=== PATIENT | female | born 1990 | race Caucasian/White ===

== ENCOUNTER 2016-08-01 13:05 | Emergency (ER) | payer BC, OTHER ==
[2016-08-01 13:25] VITALS: RESP 18
--- NOTE | 2016-08-01 14:25 | ED ---
General Adult HPI - General Chief complaint: Vaginal Bleeding Stated complaint: 8 weeks /Bleeding Time Seen by Provider: 08/01/16 13:33 Source: patient, RN notes reviewed, old records reviewed Mode of arrival: ambulatory Limitations: no limitations - History of Present Illness Initial comments: This is a 25-year-old female the ER for evaluation of positive with vaginal bleeding. Patient states she is unsure of her blood type but she thinks she is positive. And this is the same person as her prior as far as the father. Patient is a with no complications. She recently had some cramping and bleeding yesterday and today. Still some cramping, no significant bleeding no lightheadedness dizziness or weakness - Related Data Home Medications Medication Instructions Recorded Confirmed Pik-Xcac-Jkbho Acid 1 cap PO QAM 08/01/16 08/01/16 [-U Capsule (formulary)] Allergies Allergy/AdvReac Type Severity Reaction Status Date / Time No Known Allergies Allergy Verified 08/01/16 15:10 Review of Systems ROS Statement: Those systems with pertinent positive or pertinent negative responses have been documented in the HPI. ROS Other: All systems not noted in ROS Statement are negative. Past Medical History Past Medical History: No Reported History History of Any Multi-Drug Resistant Organisms: None Reported Past Surgical History: Ear Surgery Past Psychological History: No Psychological Hx Reported Smoking Status: Current every day smoker Past Alcohol Use History: Occasional Past Drug Use History: None Reported General Exam Limitations: no limitations General appearance: alert, in no apparent distress Head exam: Present: atraumatic, normocephalic, normal inspection Eye exam: Present: normal appearance, PERRL, EOMI. Absent: scleral icterus, conjunctival injection, periorbital swelling ENT exam: Present: normal exam, mucous membranes moist Neck exam: Present: normal inspection. Absent: tenderness, meningismus, lymphadenopathy Respiratory exam: Present: normal lung sounds bilaterally. Absent: respiratory distress, wheezes, rales, rhonchi, stridor Cardiovascular Exam: Present: regular rate, normal rhythm, normal heart sounds. Absent: systolic murmur, diastolic murmur, rubs, gallop, clicks GI/Abdominal exam: Present: soft, normal bowel sounds. Absent: distended, tenderness, guarding, rebound, rigid Extremities exam: Present: normal inspection, full ROM, normal capillary refill. Absent: tenderness, pedal edema, joint swelling, calf tenderness Back exam: Present: normal inspection Neurological exam: Present: alert, oriented X3, CN II-XII intact Psychiatric exam: Present: normal affect, normal mood Skin exam: Present: warm, dry, intact, normal color. Absent: rash Course Vital Signs 08/01/16 13:22 Temperature 99.5 F Pulse Rate 108 H Respiratory 18 Rate Blood Pressure 135/77 O2 Sat by Pulse 99 Oximetry - Reevaluation(s) Reevaluation #1: 08/01/16 15:35 Spoke with patient greater than 15 minutes regarding threatened , ectopic versus miscarriage. Patient aware of signs and symptoms, questions answered, patient will follow-up with OB or return to emergency room if symptoms worsen again in 2 days for reevaluation Medical Decision Making - Lab Data Result diagrams: 08/01/16 14:04 Lab Results 08/01/16 08/01/16 08/01/16 Range/Units 14:04 14:04 14:04 WBC 10.4 (3.8-10.6) k/uL RBC 4.96 (3.80-5.40) m/uL Hgb 13.9 (11.4-16.0) gm/dL Hct 41.5 (34.0-46.0) % MCV 83.7 (80.0-100.0) fL MCH 28.1 (25.0-35.0) pg MCHC 33.6 (31.0-37.0) g/dL RDW 13.5 (11.5-15.5) % Plt Count 233 (150-450) k/uL Neutrophils % 82 % Lymphocytes % 12 % Monocytes % 4 % Eosinophils % 1 % Basophils % 0 % Neutrophils # 8.5 H (1.3-7.7) k/uL Lymphocytes # 1.2 (1.0-4.8) k/uL Monocytes # 0.4 (0-1.0) k/uL Eosinophils # 0.1 (0-0.7) k/uL Basophils # 0.0 (0-0.2) k/uL HCG, Quant mIU/mL Urine Color Urine Appearance (Clear) Urine pH (5.0-8.0) Ur Specific [place] (1.001-1.035) Urine Protein (Negative) Urine Glucose (UA) (Negative) Urine Blood (Negative) Urine Nitrite (Negative) Urine Bilirubin (Negative) Urine Urobilinogen (<2.0) mg/dL Ur Leukocyte Esterase (Negative) Urine RBC (0-5) /hpf Urine WBC (0-5) /hpf Ur Squamous Epith Cells (0-4) /hpf Hyaline Casts (0-2) /lpf Urine Mucus (None) /hpf Urine HCG, Qual Detected (Not Detectd) Blood Type B Positive Blood Type Recheck B Pos 08/01/16 08/01/16 Range/Units 14:04 14:04 WBC (3.8-10.6) k/uL RBC (3.80-5.40) m/uL Hgb (11.4-16.0) gm/dL Hct (34.0-46.0) % MCV (80.0-100.0) fL MCH (25.0-35.0) pg MCHC (31.0-37.0) g/dL RDW (11.5-15.5) % Plt Count (150-450) k/uL Neutrophils % % Lymphocytes % % Monocytes % % Eosinophils % % Basophils % % Neutrophils # (1.3-7.7) k/uL Lymphocytes # (1.0-4.8) k/uL Monocytes # (0-1.0) k/uL Eosinophils # (0-0.7) k/uL Basophils # (0-0.2) k/uL HCG, Quant 6016.4 mIU/mL Urine Color Light Red Urine Appearance Cloudy H (Clear) Urine pH 6.0 (5.0-8.0) Ur Specific [place] 1.021 (1.001-1.035) Urine Protein 1+ H (Negative) Urine Glucose (UA) Negative (Negative) Urine Blood Large H (Negative) Urine Nitrite Negative (Negative) Urine Bilirubin Negative (Negative) Urine Urobilinogen 2.0 (<2.0) mg/dL Ur Leukocyte Esterase Moderate H (Negative) Urine RBC >182 H (0-5) /hpf Urine WBC 38 H (0-5) /hpf Ur Squamous Epith Cells 2 (0-4) /hpf Hyaline Casts 6 H (0-2) /lpf Urine Mucus Moderate H (None) /hpf Urine HCG, Qual (Not Detectd) Blood Type Blood Type Recheck Disposition Clinical Impression: Miscarriage Disposition: HOME SELF-CARE Condition: Good Instructions: Miscarriage (ED) Referrals: Shanna Skinner MD [Primary Care Provider] - 1-2 days
[2016-08-01 14:30] LABS: Basophils % (A) 0 %; CH 27.8; CHCM 33.3; Eosinophils # (A) 0.1 k/uL (0-0.7); Eosinophils % (A) 1 %; HCT 41.5 % (34.0-46.0); HDW 2.27; HGB 13.9 gm/dL (11.4-16.0); Luc # (Auto) 0.14; Luc % (Auto) 1; Lymphocytes # (A) 1.2 k/uL (1.0-4.8); Lymphocytes % (A) 12 %; MCH 28.1 pg (25.0-35.0); MCHC 33.6 g/dL (31.0-37.0); MCV 83.7 fL (80.0-100.0); Mean Platelet Volume 7.5; Monocytes # (A) 0.4 k/uL (0-1.0); Monocytes % (A) 4 %; Neutrophils # (A) 8.5 k/uL (1.3-7.7); Neutrophils % (A) 82 %; RBC 4.96 m/uL (3.80-5.40); RDW 13.5 % (11.5-15.5); WBC 10.4 k/uL (3.8-10.6); WBC (Perox) 10.25
[2016-08-01 14:44] LABS: Appearance,Urine Cloudy (Clear); Bilirubin,Urine Negative (Negative); Glucose,Urine (UA) Negative (Negative); Ketones,Urine 2+ (Negative); Leukocyte Esterase,Urine Moderate (Negative); Mucus,Urine Moderate /hpf; Nitrite,Urine Negative (Negative); Particle Count 8499; Protein,Urine 1+ (Negative); RBC,Urine >182 /hpf (0-5); Specific Gravity,Urine 1.021 (1.001-1.035); Squamous Epithelial Cell,Urine 2 /hpf (0-4); UA Billing (MACRO vs. MICRO) MICRO; WBC,Urine 38 /hpf (0-5)
--- NOTE | 2016-08-01 15:08 | US ---
EXAMINATION TYPE: US OB <=14 wks transvag DATE OF EXAM: 08/01/2016 COMPARISON: NONE CLINICAL HISTORY: pain. Spotting yesterday. Heavy vaginal bleeding with clots today. Cramping EXAM PERFORMED: Transvaginal (TV) and Transabdominal (TA) EXAM MEASUREMENTS: GESTATIONAL AGE / DATING Physician Established: not established Dates by LMP: (7 weeks/3 days) EDC: 03/17/17 Dates by First Scan: no prior scan Dates by Current Scan for: No IUP seen at this time MATERNAL ANATOMY Uterus: 7.2 x 4.8 x 5.6cm Right Ovary: 1.9 x 1.4 x 1.6cm Left Ovary: 2.8 x 1.9 x 1.8cm Post CDS / Adnexa: small amount of free fluid left adnexa Presence of free fluid: yes Presence of corpus luteal cyst: yes, complex area left ovary = 1.6 x 1.8 x 1.6cm GESTATION / SURVEY IUP: No IUP seen at this time Date of LMP: 06/10/16 Beta HcG (if available): unavailable No evidence of IUP seen at this time. Small amount of free fluid left adnexa IMPRESSION: No evidence of a gestational sac. Minimal free fluid on the left side. Complex left ovarian cyst.
[2016-08-01 15:41] VITALS: BP 102/68; PULSE 80; TEMP 97.6
== END 2016-08-01 15:41 | disposition home or self-care (01) ==
LOC: EC 13:05
DX: O03.9 Complete or unspecified spontaneous abortion without complication (principal); O99.331 Smoking (tobacco) complicating pregnancy, first trimester; F17.200 Nicotine dependence, unspecified, uncomplicated; Z79.899 Other long term (current) drug therapy; Z3A.08 8 weeks gestation of pregnancy
CPT/HCPCS: 36415; 76801; 76817; 81001; 81025; 84702; 85025; 86900; 86901; 87086; 87491; 87591; 99284

== ENCOUNTER → 2016-08-03 | Outpatient (CLI) | payer BC | END | disposition home or self-care (01) | LOC: LABWHC1 09:07 | PROVIDERS: ATTEND Obstetrics & Gynecology | DX: Z34.80 Encounter for supervision of other normal pregnancy, unspecified trimester (principal); Z3A.00 Weeks of gestation of pregnancy not specified | CPT/HCPCS: 36415; 84702 ==

== ENCOUNTER → 2016-12-27 | Outpatient (CLI) | payer SELFPAY | END | disposition home or self-care (01) | LOC: LABWHC1 13:55 | PROVIDERS: ATTEND Obstetrics & Gynecology | DX: Z34.81 Encounter for supervision of other normal pregnancy, first trimester (principal) | CPT/HCPCS: 36415; 84702 ==

== ENCOUNTER → 2017-03-27 | Outpatient (CLI) | payer SELFPAY ==
--- NOTE | 2017-03-27 14:23 | US ---
EXAMINATION TYPE: US OB anatomy transabd DATE OF EXAM: 03/27/2017 COMPARISON: HISTORY: O36.62XO Large For Dates Anatomy TECHNIQUE: Transvaginal (TV) and Transabdominal (TA) EXAM MEASUREMENTS: GESTATIONAL AGE / DATING Physician Established: (19 weeks/1 days) EDC: 08/20/2017 Dates by Current Scan for: (19 weeks/5 days) EDC: 6/ SURVEY IUP: PLACENTA: Anterior PREVIA: No previa NICOLETTE: 11.6 cm Normal CERVICAL LENGTH (transabdominal: norm > 3.0cm): 4.1 cm BIOMETRY PRESENTATION: Variable LIE: Transverse lie with head maternal R BPD: 4.6 cm 19 weeks / 6 days HC: 17.5 cm 20 weeks / 0 days AC: 15.1 cm 20 weeks / 2 days FL: 3.1 cm 19 weeks / 4 days ESTIMATED WEIGHT IN GRAMS: 325.3 grams ESTIMATED WEIGHT IN LBS/OZ: 0 lbs. 11 oz. WEIGHT PERCENTAGE BASED ON ESTABLISHED DATE: 89.6 % HC/AC: 1.2 Normal FL/AC: 20.6 HEART RATE: 146 bpm RHYTHM: Normal ANATOMY SEEN (within normal limits): * Lateral Vent (< 1 cm) 0.5 cm * Cisterna Magna (< 1.1 cm) 0.6 cm * Nuchal Fold (< 0.6 cm) 0.4 cm * Cerebellum (varies with age) 1.9 cm Midline Falx Cavus Septi Pellucidi Four Chamber Heart Outflow tracts: LVOT/RVOT Stomach Situs Nose / Lips Diaphragm Kidneys (bilateral) Bladder Cord Insert Three Vessel Cord Longitudinal Spine Transverse Spine Arms (bilateral) Legs (bilateral) ANATOMY SEEN (does not appear within normal limits): Choroid Plexus - Septated cystic lesion = 1.0 x 0.8 cm ANATOMY NOT SEEN: IMPRESSION: Live single IUP measuring 19 weeks 5 days. Choroid plexus septated cystic appearing lesion seen.
== END | disposition home or self-care (01) ==
LOC: RADUSWWP 12:43
PROVIDERS: ATTEND Obstetrics & Gynecology
DX: O35.0XX0 Maternal care for (suspected) central nervous system malformation in fetus, not applicable or unspecified (principal); Z3A.19 19 weeks gestation of pregnancy
CPT/HCPCS: 76811

== ENCOUNTER → 2017-04-24 | Outpatient (CLI) | payer SELFPAY ==
--- NOTE | 2017-04-24 14:48 | US ---
EXAMINATION TYPE: US OB anatomy transabd DATE OF EXAM: 04/24/2017 COMPARISON: NONE HISTORY: 26-year-old female Z36 follow up of previous abnormal US choroid cyst seen at previous exam TECHNIQUE: OBTA FINDINGS: EXAM MEASUREMENTS: GESTATIONAL AGE / DATING Physician Established: (23 weeks/1 days) EDC: 08/20/2017 Dates by LMP: (23 weeks/1 days) EDC: 08/20/2017 Dates by First Scan: (23 weeks/1 days) EDC: 08/20/2017 Dates by Current Scan for: (22 weeks/6 days). 6 days less growth than expected from 03/27/2017 EDC: 08/22/2016 SURVEY IUP: Single PLACENTA: Anterior PREVIA: No previa, pre void imaging showed low lying but once patient voided placenta moved anteriorl y NICOLETTE: 17.5 cm Normal CERVICAL LENGTH (transabdominal: norm > 3.0cm): 3.4 cm BIOMETRY PRESENTATION: Breech LIE: Oblique BPD: 5.5 cm 22 weeks / 6 days HC: 21.5 cm 23 weeks / 4 days AC: 18.2 cm 23 weeks / 0 days FL: 4.1 cm 23 weeks / 1 days ESTIMATED WEIGHT IN GRAMS: 565 grams ESTIMATED WEIGHT IN LBS/OZ: 1 lbs. 4 oz. WEIGHT PERCENTAGE BASED ON ESTABLISHED DATE: 41 % versus 89.6% on 03/27/2017 HC/AC: 1.2 Normal FL/AC: 22.4 Normal HEART RATE: 138 bpm RHYTHM: Normal ANATOMY SEEN (within normal limits): Lateral Vent (< 1 cm) 0.9 cm, upper limits. Cisterna Magna (< 1.1 cm) 0.5 cm Cerebellum (varies with age) 2.6 cm Choroid Plexus (bilateral) Midline Falx Cavus Septi Pellucidi Four Chamber Heart Stomach Situs Nose / Lips Diaphragm Bladder Three Vessel Cord Longitudinal Spine Transverse Spine Arms (bilateral) Legs (bilateral) ANATOMY SUBOPTIMALLY VISUALIZED: Outflow tracts: LVOT/RVOT Cord Insert Kidneys (bilateral) Die Engraver notes: Multiple images of choroids did not produce the same septated lesion as noted on p rior exam. The previous choroid plexus cyst has either significantly decreased in size or has resolved. IMPRESSION: 1. Single live intrauterine with estimated gestational age of 23 weeks 1 day by LMP. Curren t ultrasound biometry is concordant (22 weeks 6 days) placing the at the 41st percentile fo r weight. 2. However, note is 6 days less growth than expected from 03/27/2017 with EFW having dropped from 90 p ercentile now to the 41 percentile. Further follow-up as clinically indicated. 3. The previous choroid plexus cyst appears to have resolved. Ventricular size is upper limits of nor mal at 9 mm. This can also be reassessed at patient's follow-up.
== END | disposition home or self-care (01) ==
LOC: RADUSWWP 12:13
PROVIDERS: ATTEND Obstetrics & Gynecology
DX: Z36.9 Encounter for antenatal screening, unspecified (principal); Z3A.22 22 weeks gestation of pregnancy
CPT/HCPCS: 76811

== ENCOUNTER → 2017-05-06 | Outpatient (CLI) | payer SELFPAY ==
[2017-05-06 10:15] LABS: HCT 38.1 % (34.0-46.0); HGB 12.4 gm/dL (11.4-16.0); MCH 27.9 pg (25.0-35.0); MCHC 32.5 g/dL (31.0-37.0); MCV 85.8 fL (80.0-100.0); Mean Platelet Volume 7.5; Platelet Count 248 k/uL (150-450); RBC 4.44 m/uL (3.80-5.40); RDW 12.8 % (11.5-15.5); WBC 10.7 k/uL (3.8-10.6)
== END | disposition home or self-care (01) ==
LOC: LABWHC1 08:43
PROVIDERS: ATTEND Obstetrics & Gynecology
DX: Z34.82 Encounter for supervision of other normal pregnancy, second trimester (principal)
CPT/HCPCS: 36415; 82950; 85027

== ENCOUNTER → 2017-07-17 | Outpatient (CLI) | payer SELFPAY ==
--- NOTE | 2017-07-17 13:27 | US ---
EXAMINATION TYPE: US OB anatomy transabd DATE OF EXAM: 07/17/2017 COMPARISON: NONE HISTORY: O36.63X0 Large for dates 3rd trimester TECHNIQUE: EXAM MEASUREMENTS: GESTATIONAL AGE / DATING Physician Established: (35 weeks/ 1 days) EDC: 08/20/17 Dates by LMP: (35 weeks/1 days) EDC: 08/20/17 Dates by First Scan: (35 weeks/1 days) EDC: 08/20/17 Dates by Current Scan for: (35 weeks/0 days) EDC: 08/21/17 SURVEY IUP: Single PLACENTA: Anterior PREVIA: No previa NICOLETTE: 11.1 cm CERVICAL LENGTH (transabdominal: norm > 3.0cm): 4.2 cm BIOMETRY PRESENTATION: Vertex LIE: Longitudinal BPD: 8.8 cm 35 weeks / 3 days HC: 31.7 cm 35 weeks / 5 days AC: 30.8 cm 34 weeks / 6 days FL: 6.9 cm 35 weeks / 2 days ESTIMATED WEIGHT IN GRAMS: 2587 grams ESTIMATED WEIGHT IN LBS/OZ: 5 lbs. 11 oz. WEIGHT PERCENTAGE BASED ON ESTABLISHED DATE: 45 % HC/AC: 1.0 FL/AC: 22.3 HEART RATE: 159 bpm RHYTHM: Normal ANATOMY SEEN (within normal limits): Midline Falx Four Chamber Heart Outflow tracts: /RVOT Stomach Situs Nose / Lips Diaphragm Kidneys (bilateral) Bladder Three Vessel Cord Longitudinal Spine Transverse Spine ANATOMY NOT SEEN: Due to shadowing from bone and crowding * Lateral Vent (< 1 cm) cm * Cisterna Magna (< 1.1 cm) cm * Nuchal Fold (< 0.6 cm) cm * Cerebellum (varies with age) cm Choroid Plexus (bilateral) Arms (bilateral) Legs (bilateral) Cord Insert LVOT Cavus Septi Pellucidi IMPRESSION: Limited survey. Single viable intrauterine corresponding to ultrasound age 35 weeks 0 days with estimated date of delivery 08/21/2017
== END | disposition home or self-care (01) ==
LOC: RADUSWWP 12:22
PROVIDERS: ATTEND Obstetrics & Gynecology
DX: O36.63X0 Maternal care for excessive fetal growth, third trimester, not applicable or unspecified (principal); Z3A.35 35 weeks gestation of pregnancy
CPT/HCPCS: 76811

== ENCOUNTER 2017-08-16 03:35 | Inpatient (IN) | payer OTHER ==
[2017-08-16] MEDS ORDERED: METHYLERGONOVINE 0.2 MG/ML 1 ML AMP IM PRN (03:54)
[2017-08-16] MEDS ORDERED: CARBOPROST TROMETHAMINE 250 MCG/ML 1 ML AMP IM PRN (03:54)
[2017-08-16] MEDS ORDERED: TERBUTALINE 1 MG/ML VIAL SQ PRN (03:54)
[2017-08-16] MEDS ORDERED: LIDOCAINE 1% (PF) 10 MG/ML (30 ML SDV) SQ PRN (03:54)
[2017-08-16] MEDS ORDERED: OXYTOCIN 10 UNIT/ML 1 ML VIAL IM PRN (03:54)
[2017-08-16 04:12] VITALS: BMI 24.7
[2017-08-16] MEDS: LACTATED RINGERS 1,000 ML IV SCH ×2 (04:49→05:36)
[2017-08-16 04:50] LABS: Basophils % (A) 0 %; Eosinophils # (A) 0.1 k/uL (0-0.7); Eosinophils % (A) 1 %; HCT 38.1 % (34.0-46.0); HGB 12.5 gm/dL (11.4-16.0); Lymphocytes # (A) 1.8 k/uL (1.0-4.8); Lymphocytes % (A) 18 %; MCH 25.5 pg (25.0-35.0); MCHC 32.8 g/dL (31.0-37.0); MCV 77.5 fL (80.0-100.0); Mean Platelet Volume 8.3; Monocytes # (A) 0.5 k/uL (0-1.0); Monocytes % (A) 6 %; Neutrophils # (A) 7.2 k/uL (1.3-7.7); Neutrophils % (A) 74 %; Platelet Count 196 k/uL (150-450); RBC 4.92 m/uL (3.80-5.40); RDW 15.9 % (11.5-15.5); WBC 9.8 k/uL (3.8-10.6)
[2017-08-16] MEDS ORDERED: SODIUM CHLORIDE 0.9% 100 ML BAG ONE (05:36)
[2017-08-16] MEDS ORDERED: fentaNYL (PF) 50 MCG/ML 5 ML AMP ONE (05:36)
[2017-08-16] MEDS ORDERED: BUPIVACAINE (PF) 0.25% 30 ML VIAL ONE (05:36)
[2017-08-16] MEDS ORDERED: ROPIVACAINE 100 MG, fentaNYL (PF) 200 MCG in SODIUM CHLORIDE 0.9% 76 ML EPIDURAL ONE (05:56)
[2017-08-16] MEDS ORDERED: OXYTOCIN 20 UNITS/1000 ML NS 1,000 ML IV SCH ×2 (07:15→09:30)
--- NOTE | 2017-08-16 07:26 | P.HPOB ---
History of Present Illness H&P Date: 08/16/17 Chief Complaint: Labor 26 year old presents at 39 weeks 3 days in labor. Her cervix was 4/80/-2 and she was quang every 2-4 minutes. heart tones 130-135 with moderate variability and reactive. Review of Systems All systems: negative Constitutional: Denies chills, Denies fever Eyes: denies blurred vision, denies pain Ears, nose, mouth and throat: Denies headache, Denies sore throat Cardiovascular: Denies chest pain, Denies shortness of breath Respiratory: Denies cough Gastrointestinal: Denies abdominal pain, Denies diarrhea, Denies nausea, Denies vomiting Genitourinary: Denies dysuria, Denies hematuria Musculoskeletal: Denies myalgias Integumentary: Denies pruritus, Denies rash Neurological: Denies numbness, Denies weakness Psychiatric: Denies anxiety, Denies depression Endocrine: Denies fatigue, Denies weight change Past Medical History Past Medical History: No Reported History Additional Past Medical History / Comment(s): Obstetric history: First was a vaginal delivery 8 pounds 3 pounds, second was a spontaneous . This is her third . She's had care with me since 6 weeks gestation. Blood type is B+, antibodies negative, rubella immune, RPR nonreactive, hepatitis B negative. Normal 1 hour glucose tolerance test. GBS negative. History of Any Multi-Drug Resistant Organisms: None Reported Past Surgical History: Ear Surgery Past Anesthesia/Blood Transfusion Reactions: No Reported Reaction Past Psychological History: No Psychological Hx Reported Smoking Status: Never smoker Past Alcohol Use History: None Reported, Occasional Past Drug Use History: None Reported - Past Family History Mother Family Medical History: No Reported History Medications and Allergies Home Medications Medication Instructions Recorded Confirmed Type Anw-Jfwo-Isdur Acid 1 cap PO QAM 08/01/16 08/16/17 History [-U Capsule (formulary)] Allergies Allergy/AdvReac Type Severity Reaction Status Date / Time No Known Allergies Allergy Verified 08/16/17 03:38 Exam Osteopathic Statement: *. No significant issues noted on an osteopathic structural exam other than those noted in the History and Physical/Consult. - Vital Signs Vital signs: Vital Signs Temp Pulse Resp BP 08/16/17 04:07 97.7 F 96 16 137/88 08/16/17 03:39 97.7 F 96 16 137/88 Intake and Output 08/15/17 08/16/17 08/16/17 22:59 06:59 14:59 Intake Total 1000 Balance 1000 Intake: IV 1000 Lactated Ringers 1,000 ml 1000 @ 125 mls/hr IV .Q8H SANTOS Rx#:[id number] Other: # Voids 1 Weight 71.668 kg Heart: Regular rate and rhythm Lungs: Clear to auscultation bilaterally Abdomen: Soft, nontender Extremities: Negative Homans sign Results Result Diagrams: 08/16/17 04:30 Abnormal Lab Results - Last 24 Hours (Table) 08/16/17 Range/Units 04:30 MCV 77.5 L (80.0-100.0) fL RDW 15.9 H (11.5-15.5) % Assessment and Plan (1) Normal labor Current Visit: Yes Status: Acute Code(s): O80 - ENCOUNTER FOR FULL-TERM UNCOMPLICATED DELIVERY; Z37.9 - OUTCOME OF DELIVERY, UNSPECIFIED SNOMED Code(s ): 27070041 Plan: 1. Admit to family place 2. Expectant management 3. Anticipate normal vaginal delivery
[2017-08-16] MEDS ORDERED: LANOLIN CREAM 5 GM TUBE TOPICAL PRN (09:18)
[2017-08-16] MEDS ORDERED: WITCH HAZEL 1 EACH MED..PAD TOPICAL PRN (09:18)
[2017-08-16] MEDS ORDERED: SIMETHICONE 80 MG CHEWABLE PO PRN (09:18)
[2017-08-16] MEDS ORDERED: HYDROCORTISONE 2.5% RECTAL CREAM 30 GM TUBE RECTAL PRN (09:18)
[2017-08-16] MEDS ORDERED: ZOLPIDEM 5 MG TAB PO PRN (09:18)
[2017-08-16] MEDS ORDERED: diphenhydrAMINE 50 MG CAP PO PRN (09:18)
[2017-08-16] MEDS ORDERED: diphenhydrAMINE 50 MG/ML 1 ML VIAL IVP PRN ×2 (09:18)
[2017-08-16] MEDS ORDERED: diphenhydrAMINE 25 MG CAP PO PRN (09:18)
[2017-08-16] MEDS ORDERED: BENZOCAINE/MENTHOL SPRAY 1 GM/SPRAY AEROSOL TOPICAL PRN (09:18)
[2017-08-16] MEDS: IBUPROFEN 600 MG TAB PO PRN ×2 (10:20→17:12)
[2017-08-16] MEDS: SENNOSIDES-DOCUSATE SODIUM 1 EACH TAB PO SCH ×2 (11:49→20:54)
--- NOTE | 2017-08-16 19:27 | P.PROBDLV ---
Vaginal Delivery Note - . Vaginal Delivery Note: 26-year-old presented at 39 weeks and 3 days in labor. Her cervix was 4 cm dilated, 90% effaced, and -1 station. She was quang every 2-4 minutes. heart tones 130-135 with moderate variability and reactive. Patient did get an epidural and was comfortable. Amniotomy was performed at 7: 05 AM and clear fluid noted. Pitocin augmentation was also started as her contractions spaced out to 7 minutes apart. Her cervix was completely dilated at 8:53 AM. She pushed, and delivered a viable male over intact perineum under epidural anesthesia at 9:06 AM. Head delivered OA, anterior shoulder delivered gentle downward guidance followed by posterior shoulder and rest of body. Nose and mouth bulb suctioned, cord clamped and cut, placed on mother's abdomen. Apgars 9, 9, weight 7 lbs. 12 oz. Placenta delivered spontaneously, intact with three-vessel cord at 9:08 AM. Vagina, cervix, and perineum were inspected, no lacerations noted. Estimated blood loss 150 mL. Mother and baby in stable condition.
[2017-08-16] MEDS: ACETAMINOPHEN TAB 325 MG TAB PO PRN (21:26)
[2017-08-17] MEDS: IBUPROFEN 600 MG TAB PO PRN ×2 (04:30→13:58)
[2017-08-17] MEDS: ACETAMINOPHEN TAB 325 MG TAB PO PRN (09:13)
[2017-08-17] MEDS: SENNOSIDES-DOCUSATE SODIUM 1 EACH TAB PO SCH (09:15)
--- NOTE | 2017-08-17 09:24 | P.DS ---
Providers Date of admission: 08/16/17 03:53 Expected date of discharge: 08/17/17 Attending physician: Starla Bran Primary care physician: Stated None - Discharge Diagnosis(es) (1) Normal labor Current Visit: Yes Status: Resolved (2) Normal vaginal delivery Current Visit: Yes Status: Acute Hospital Course: Patient presented in active labor. She underwent normal vaginal delivery. Her course was uncomplicated. She'll be discharged home day # 1 in stable condition to follow-up with me in 6 weeks. Plan - Discharge Summary New Discharge Prescriptions: New Ibuprofen [Motrin] 600 mg PO Q6HR PRN #30 tab PRN Reason: Mild Pain Or Fever >= 100.5 No Action Clm-Hppf-Qqhih Acid [-U Capsule (formulary)] 1 cap PO QAM Discharge Medication List Ovu-Quiu-Xdztb Acid [-U Capsule (formulary)] 1 cap PO QAM 08/01 [History] Ibuprofen [Motrin] 600 mg PO Q6HR PRN #30 tab 08/17/17 [Rx] Follow up Appointment(s)/Referral(s): Starla Bran DO [Doctor of Osteopathic Medicine] - 6 Weeks Discharge Disposition: HOME SELF-CARE
[2017-08-17 10:13] VITALS: BP 113/69; PULSE 85; RESP 18; TEMP 97.5
== END 2017-08-17 16:30 | disposition home or self-care (01) | DRG 775 ==
LOC: FBPOP 03:35 → 4FBP 03:53
PROVIDERS: ADMIT Obstetrics & Gynecology; ATTEND Obstetrics & Gynecology
PROC: 10E0XZZ Delivery of Products of Conception, External Approach (ICD-10-PCS; principal; 2017-08-16)
PROC: 00HU33Z Insertion of Infusion Device into Spinal Canal, Percutaneous Approach (ICD-10-PCS; principal; 2017-08-16)
PROC: 10907ZC Drainage of Amniotic Fluid, Therapeutic from Products of Conception, Via Natural or Artificial Opening (ICD-10-PCS; principal; 2017-08-16)
PROC: 3E0R3NZ Introduction of Analgesics, Hypnotics, Sedatives into Spinal Canal, Percutaneous Approach (ICD-10-PCS; principal; 2017-08-16)
DX: O80 Encounter for full-term uncomplicated delivery (principal); Z37.0 Single live birth; Z3A.39 39 weeks gestation of pregnancy
CPT/HCPCS: 59025; 85025; 99213